=== PATIENT | female | born 1955 | race Caucasian/White ===

== ENCOUNTER 2018-09-20 18:13 | Emergency (ER) | payer BC | END 2018-09-20 20:33 | disposition home or self-care (01) | LOC: ERS 18:13 | DX: I10 Essential (primary) hypertension (principal); F32.9 Major depressive disorder, single episode, unspecified; F17.210 Nicotine dependence, cigarettes, uncomplicated; Z71.1 Person with feared health complaint in whom no diagnosis is made; Z79.01 Long term (current) use of anticoagulants | CPT/HCPCS: 93005 ==

== ENCOUNTER 2019-03-09 14:32 | Outpatient (CLI) | payer BC ==
--- NOTE | 2019-03-09 15:11 | BD ---
EXAM: Bone densitometry using DEXA HISTORY: 63 yo female. Screening for postmenopausal osteoporosis. Asymptomatic menopausal state FINDINGS: L1--bone mineral density 0.805 g/sq cm; T score -1.7 ; Z score -0.3 L2--bone mineral density 0.915 g/sq cm; T score -1.0 ; Z score 0.5 L3--bone mineral density 0.909 g/sq cm; T score -1.6 ; Z score 0.0 L4--bone mineral density 0.948 g/sq cm; T score -1.0 ; Z score 0.6 Total L1-L4--bone mineral density 0.897 g/sq cm; T score -1.4 ; Z score 2.2 Left femoral neck--bone mineral density0.770; T score -0.7 ; Z score 0.6 Total proximal left femur--bone mineral density 1.024; T score 0.7 ; Z score 1.7 The 10 year fracture risk for a major osteoporotic fracture is 6.2% and for a hip fracture is 0.3%. IMPRESSION: Osteopenia
== END 2019-03-09 14:33 | disposition home or self-care (01) ==
LOC: BICMAMMO 14:32
PROVIDERS: ATTEND Family Medicine
DX: Z13.820 Encounter for screening for osteoporosis (principal); Z78.0 Asymptomatic menopausal state; M85.89 Other specified disorders of bone density and structure, multiple sites
CPT/HCPCS: 77080

== ENCOUNTER 2019-06-25 09:51 | Emergency (ER) | payer BC | END 2019-06-25 10:28 | disposition home or self-care (01) | LOC: ERS 09:51 | DX: R21 Rash and other nonspecific skin eruption (principal); I10 Essential (primary) hypertension; F32.9 Major depressive disorder, single episode, unspecified; F17.210 Nicotine dependence, cigarettes, uncomplicated | CPT/HCPCS: 99282 ==

== ENCOUNTER 2019-07-06 15:52 | Outpatient (CLI) | payer BC ==
--- NOTE | 2019-07-06 16:07 | RAD ---
EXAM: Chest PA and lateral: HISTORY: Cough COMPARISON: None FINDINGS: Heart: Normal cardiac silhouette Aorta: Unremarkable Pulmonary vessels: Normal Costophrenic angles: Costophrenic angles are clear. Lungs: No consolidation or masses. Pneumothorax: No pneumothorax Osseous structures: No osseous abnormalities IMPRESSION: No acute cardiopulmonary process.
== END 2019-07-06 15:53 | disposition home or self-care (01) ==
LOC: BICRAD 15:52
PROVIDERS: ATTEND Family Medicine
DX: R05 Cough (principal)
CPT/HCPCS: 36415; 71046; 82378; 86304

== ENCOUNTER 2019-07-15 16:21 | Outpatient (CLI) | payer BC ==
--- NOTE | 2019-07-15 16:53 | MMO ---
Bilateral MAMMO Bilat Screen [facility]. CLINICAL HISTORY: Patient is 63 years old and is seen for screening. VIEWS: The views performed were: bilateral craniocaudal with tomosynthesis and bilateral mediolateral oblique with tomosynthesis. FILMS COMPARED: The present examination has been compared to prior imaging studies performed at [facility] on 12/20/2013, 08/17/2015 and 12/30/2016. This study has been interpreted with the assistance of computer-aided detection. MAMMOGRAM FINDINGS: The breasts are extremely dense, which may lower the sensitivity of mammography. There are stable benign appearing calcifications seen in both breasts. There are no suspicious masses, suspicious calcifications, or new areas of architectural distortion. IMPRESSION: THERE IS NO MAMMOGRAPHIC EVIDENCE OF MALIGNANCY. A ROUTINE FOLLOW-UP MAMMOGRAM IN 1 YEAR IS RECOMMENDED. THE RESULTS OF THIS EXAM WERE SENT TO THE PATIENT. ACR BI-RADS Category 2 - Benign finding MAMMOGRAPHY NOTE: 1. A negative mammogram report should not delay a biopsy if a dominant of clinically suspicious mass is present. 2. Approximately 10% to 15% of breast cancers are not detected by mammography. 3. Adenosis and dense breasts may obscure an underlying neoplasm. Reported by: YASIR JENSEN MD Electonically Signed: [id number]
== END 2019-07-15 16:22 | disposition home or self-care (01) ==
LOC: BICMAMMO 16:21
PROVIDERS: ATTEND Family Medicine
DX: Z12.31 Encounter for screening mammogram for malignant neoplasm of breast (principal)
CPT/HCPCS: 77063; 77067

== ENCOUNTER 2020-11-30 07:50 | Outpatient (CLI) | payer BC | END 2020-11-30 07:51 | disposition home or self-care (01) | LOC: BICMAMMO 07:50 | PROVIDERS: ATTEND Family Medicine | DX: Z12.31 Encounter for screening mammogram for malignant neoplasm of breast (principal); Z12.2 Encounter for screening for malignant neoplasm of respiratory organs; Z13.820 Encounter for screening for osteoporosis; Z78.0 Asymptomatic menopausal state; F17.210 Nicotine dependence, cigarettes, uncomplicated; N64.89 Other specified disorders of breast; M85.89 Other specified disorders of bone density and structure, multiple sites | CPT/HCPCS: 71271; 77063; 77067; 77080 ==

== ENCOUNTER 2020-12-01 14:24 | Outpatient (CLI) | payer BC | END 2020-12-01 14:25 | disposition home or self-care (01) | LOC: BICMAMMO 14:24 | PROVIDERS: ATTEND Family Medicine | DX: N64.89 Other specified disorders of breast (principal); Z91.89 Other specified personal risk factors, not elsewhere classified | CPT/HCPCS: G0279 ==

== ENCOUNTER 2021-12-03 07:30 | Outpatient (CLI) | payer BC | END 2021-12-03 07:31 | disposition home or self-care (01) | LOC: BICCT 07:30 | PROVIDERS: ATTEND Family Medicine | DX: Z12.2 Encounter for screening for malignant neoplasm of respiratory organs (principal); F17.210 Nicotine dependence, cigarettes, uncomplicated | CPT/HCPCS: 71271 ==

== ENCOUNTER 2023-04-15 10:28 | Outpatient (CLI) | payer BC | END 2023-04-15 10:29 | disposition home or self-care (01) | LOC: BICCT 10:28 | PROVIDERS: ATTEND Family Medicine | DX: Z12.31 Encounter for screening mammogram for malignant neoplasm of breast (principal); Z12.2 Encounter for screening for malignant neoplasm of respiratory organs; Z00.00 Encounter for general adult medical examination without abnormal findings; F17.210 Nicotine dependence, cigarettes, uncomplicated; Z91.89 Other specified personal risk factors, not elsewhere classified | CPT/HCPCS: 71271; 77063; 77067 ==